=== PATIENT | male | born 1945 | race Caucasian/White ===

== ENCOUNTER → 2020-09-03 11:23 | Outpatient (CLI) | payer MEDICARE, SELFPAY ==
[2020-09-03 11:56] LABS: Basophils % 0.2 % (0.1-2.0); Eosinophils % 0.1 % (0.1-12.0); Hematocrit 29.4 % (42.0-52.0); Hemoglobin 9.2 g/dL (14.1-18.0); Lymphocytes # 0.7 K/mm3 (0.7-4.5); Lymphocytes % 6.5 % (10-50); Mean Corpuscular HGB Conc 31.1 g/dL (31.8-35.4); Mean Corpuscular Hemoglobin 30.1 pg (27.0-31.2); Mean Corpuscular Volume 96.9 fl (80-94); Mean Platelet Volume 8.2 fl (7.4-10.4); Monocytes # 0.5 K/mm3 (0.1-1.0); Monocytes % 4.3 % (1.7-9.3); Neutrophils # 9.9 K/mm3 (1.8-7.8); Neutrophils % 88.9 % (37.0-80.0); Platelet Count 210 K/mm3 (142-424); Red Blood Count 3.04 M/mm3 (4.60-6.20); Red Cell Distribution Width 14.9 % (11.5-17.5); White Blood Count 11.2 K/mm3 (4.8-10.8)
[2020-09-03 11:59] LABS: MANUAL DIFFERENTIAL MANUAL DIFFERENTIAL (MANUAL DIFF)
[2020-09-03 12:35] LABS: Blood Urea Nitrogen 37 mg/dl (9-20); Calcium 8.8 mg/dl (8.4-10.2); Chloride 93 mmol/L (98-107); Estimated Glomerular Filt Rate 35 ml/min (>60); GFR (African American) 42 ML/MIN (>60); Glucose 163 mg/dl (74-100); Potassium 4.2 mmoL/L (3.5-5.1); Sodium 139 mmol/L (136-145)
[2020-09-03 12:43] LABS: Anion Gap 12.2 mEq/L (5-15); Carbon Dioxide 38 mmol/L (22.0-30.0)
[2020-09-03 12:55] LABS: Coronavirus 19 IgG Antibody Negative (Negative); Coronavirus 19 IgM Antibody Negative (Negative)
[2020-09-03 14:23] LABS: Lymphocytes % 8 % (10-50); Monocytes % 1 % (2-9); Neutrophils % 91 % (42-76); Platelet Estimate Normal; RBC Morphology Normal; Total Cells Counted 100
== END ==
PROVIDERS: Visit Provider Physician Assistant
DX: R06.00 Dyspnea, unspecified (principal); R94.31 Abnormal electrocardiogram [ECG] [EKG]; Z45.02 Encounter for adjustment and management of automatic implantable cardiac defibrillator; R06.02 Shortness of breath; Z01.818 Encounter for other preprocedural examination; Z20.822 Contact with and (suspected) exposure to COVID-19
CPT/HCPCS: 36415; 80048; 85007; 85025; 86328

== ENCOUNTER 2020-09-05 09:20 | Day surgery (SDC) | payer MEDICARE, SELFPAY ==
--- NOTE | 2020-09-05 | IR_ITS ---
APPROVED REPORT Patient Location: Outpatient Broker: DANICA Garzon RT (R) PROCEDURES Pocket Revision Removal of old Pacemaker Implant of Permanent Pacemaker INDICATION Ischemic Cardiomyopathy, End of Battery Life Informed consent was obtained prior to the procedure. COMPLICATIONS None Estimated Blood Loss: Less than 10 mls TECHNIQUE 1% lidocaine with epinephrine used to anesthetize the left anterior aspect of the chest. Scalpel was used to make the initial cutaneous incision and then used to dissect down to the existing pacemaker generator. The generator was removed from the existing pocket. Digital manipulation was required along with intermittent usage of scalpel in order to revise the pocket. The leads were removed from the old generator. The new generator was screwed to the existing leads and secured into place. Electronic interrogation proved acceptable thresholds and voltage within the lead. Antibiotics were used to flush the pocket and the pacemaker was secured using 3-0 silk into the newly revised pocket. Monocryl was used to close the subcutaneous tissue and then ricardo were placed on the cutaneous area in order to approximate the incision. Patient was transferred to the postop holding area in stable condition. INTERROGATION Explanted Generator Model number: [employer], 3365-40Q Explanted Generator Serial number: [id number] Implanted Generator Model number: VIGILANT X4 PIECE WORK CHECKER-D, G247 Implanted Generator Serial number: [id number] Atrial lead model number: Tendril STS, 2088TC Atrial lead serial number: [id number] P-wave: 1.0mV Impedence: 450 ohms Threshold: 2.0V@0.4ms Left Ventricular lead model number: Quartet IS4, 1458Q Left Ventricular lead serial number: [id number] Impedence: 1500 ohms Threshold: 2.0V@1.0ms Right Ventricular lead model number: Not Documented, [id number] Right Ventricular lead serial number: [id number] R-wave: 12.0mV Impedence: 500 ohms Threshold: 1.7V@1.0ms Pacing Parameters: Mode: DDDR Base/Max Track: 60/120ppm ICD Rate Cutoffs: VT: 180 bpm VF: 210 bpm No diaphragmatic stimulation at 10 volts. IMPRESSION Successful Pocket Revision Successful Removal of old Pacemaker Successful Implant of Permanent Pacemaker PLAN 1. follow up office visit, post op wound care Electronically signed by : Shar Palafox, 09/06/2020 09:09:42
[2020-09-05 09:32] VITALS: BMI 26.1
[2020-09-05 10:26] LABS: INR 1.37 (0.9-1.1); Prothrombin Time 14.8 seconds (9.4-11.8)
--- NOTE | 2020-09-05 11:39 | P.PN_ITS ---
[facility] Anesthesia Checklist - Patient Identification Patient Identification: Arm Band - Structural Data Admitted From: Home Planned Operative Procedure/s: AICD battery change Consent for Planned Operative Procedure(s) Verified: Yes Verified Documents: Surgical Consent, History and Physical - NPO Status Verified Time NPO: 00:00 - Additional verifications Anesthesia Reactions: No Hx Blood Transfusions: No Blood Transfusion Reaction: No - Airway Assessment C-Spine Mobility Assessed: Yes (mp2) TMJ Mobility Assessed: Yes Dentition: Poor Dentition - Neurological Assessment Level of Consciousness: Awake, Alert - Anesthesia Plan Anesthesia Risk discussed: Yes Anesthesia Plan: Verified ASA Class: III Anesthesia Type: MAC [facility] History I have reviewed the patient's past medical history: Yes Medical History: Reports:: Arrhythmia, Cancer, Chronic Obstructive Pulmonary Disease (COPD), Diabetes Mellitus Type 2, Internal Pacemaker Denies:: Diabetes Mellitus Type 1, MRSA, Seizures *Have you ever received a pneumonia vaccine?: Yes *Have you received a flu vaccine this season?: Yes Other Medical History: Reports: Arthritis. Denies: Blood Transfusion Reaction Anesthesia experience/problems:: nac Other Surgeries: Yes: Hernia Repair, Pacemaker Amputation: No - *Social History Last grade of school completed: High school graduate Smoking Status: Former smoker Alcohol Intake: never Substance Use Type: denies use *Occupational Status:: retired *Travel in the last 8 weeks: Inside the [place] Family Hx:: No significant family history
[2020-09-05 12:57] VITALS: O2SAT 91
[2020-09-05 13:00] VITALS: RESP 20
[2020-09-05 13:02] VITALS: BP 143/77; PULSE 91; RESP 20; O2SAT 96
[2020-09-05 13:33] VITALS: BP 124/84; PULSE 96; RESP 22; O2SAT 92
[2020-09-05 13:34] VITALS: BP 124/84; PULSE 95; RESP 22; O2SAT 92
== END 2020-09-05 14:13 | disposition home or self-care (01) ==
LOC: CATHLAB 09:24
PROVIDERS: PCP Physician Assistant Medical; Visit Provider Internal Medicine
DX: Z45.010 Encounter for checking and testing of cardiac pacemaker pulse generator [battery] (principal); I25.5 Ischemic cardiomyopathy; Z79.01 Long term (current) use of anticoagulants; Z79.4 Long term (current) use of insulin; Z79.899 Other long term (current) drug therapy; Z79.51 Long term (current) use of inhaled steroids; I49.8 Other specified cardiac arrhythmias; E11.9 Type 2 diabetes mellitus without complications; J44.9 Chronic obstructive pulmonary disease, unspecified
CPT/HCPCS: 33264; 85610; C1882